=== PATIENT | female | born 1950 | race Caucasian/White ===

== ENCOUNTER 2022-12-30 13:55 | Outpatient (CLI) | payer OTHER, SELFPAY ==
--- NOTE | 2022-12-30 14:54 | XR_ITS ---
WS: [id number] DEXA (DUAL ENERGY X-RAY ABSORPTIOMETRY) Bone mineral density was performed using a [employer] machine. HISTORY: OSTEOPOROSIS COMPARISON: None available. Lumbar spine BMD (L1-L4): 0.999 g/cm2 T score: -1.5 Z score: 0.0 Total hip BMD: Left: 0.673 g/cm2. T score: -2.7 Z score: -1.1 Right: 0.700 g/cm2. T score: -2.4 Z score: -0.9 10 year probability of a major osteoporotic fracture is 19.5%. IMPRESSION: OSTEOPOROSIS based upon the WHO classification for females.
--- NOTE | 2022-12-30 14:58 | MM_ITS ---
WS: [id number] BILATERAL 3D TOMOSYNTHESIS DIGITAL SCREENING MAMMOGRAPHY WITH CAD CLINICAL INFORMATION: SCREENING HISTORY: Screening mammogram. No current complaints. COMPARISON: 2019 TECHNIQUE: Bilateral CC and MLO views. FINDINGS: Scattered fibroglandular densities bilaterally. No suspicious focal mass, asymmetry, calcifications, or architectural distortion. No evidence of malignancy. Vascular calcifications. Lucent centered calc ifications. IMPRESSION: MM/[place] [id number] BI-RADS: 2-Benign FOLLOW UP: 1 Year Follow-up Recommend return to annual screening mammography.
== END 2022-12-30 13:56 | disposition home or self-care (01) ==
LOC: RAD 13:55
PROVIDERS: PCP Family Medicine; Visit Provider Family Medicine
DX: Z12.31 Encounter for screening mammogram for malignant neoplasm of breast (principal); M81.0 Age-related osteoporosis without current pathological fracture
CPT/HCPCS: 77063; 77067; 77080

== ENCOUNTER → 2023-12-07 14:18 | Outpatient (BNVA) | payer OTHER, SELFPAY | PROVIDERS: PCP Family Medicine; Visit Provider Nurse Practitioner Women's Health | DX: L98.419 Non-pressure chronic ulcer of buttock with unspecified severity (principal) | CPT/HCPCS: 87070 ==

== ENCOUNTER 2023-12-25 11:45 | Outpatient (CLI) | payer OTHER, SELFPAY ==
[2023-12-25 12:39] LABS: Basophils # 0.1 10^3/uL (0.0-0.1); Basophils % 0.5 %; Eosinophils # 0.1 10^3/uL (0.0-0.8); Eosinophils % 0.6 %; Hematocrit 33.9 % (36-47); Lymphocytes # 4.1 10^3/uL (0.8-4.8); Lymphocytes % 40.6 %; Mean Corpuscular HGB Conc 32.7 g/dL (30-55); Mean Corpuscular Hemoglobin 32.8 pg (27-33); Mean Corpuscular Volume 100.3 fl (85-98); Mean Platelet Volume 9.7 fL (7.4-10.4); Monocytes # 0.9 10^3/uL (0.2-0.9); Monocytes % 9.4 %; Neutrophils # 4.87 10^3/uL (1.8-7.7); Neutrophils % 48.7 %; Nucleated Red Blood Cells % 0 %; Platelet Count 379 10^3/cmm (157-399); Red Blood Count 3.38 10^6/uL (3.85-5.65)
== END 2023-12-25 11:46 | disposition home or self-care (01) ==
LOC: LAB 11:45
PROVIDERS: PCP Family Medicine; Visit Provider Dermatology
DX: Z01.89 Encounter for other specified special examinations (principal)
CPT/HCPCS: 36415; 85025

== ENCOUNTER → 2024-02-05 12:49 | Outpatient (BNVA) | payer MEDICARE, SELFPAY | PROVIDERS: PCP Family Medicine; Visit Provider Dermatology | DX: L98.491 Non-pressure chronic ulcer of skin of other sites limited to breakdown of skin (principal) | CPT/HCPCS: 99214 ==

== ENCOUNTER 2024-09-12 11:24 | Outpatient (CLI) | payer MEDICARE, SELFPAY ==
--- NOTE | 2024-09-12 11:29 | MR_ITS ---
WS: [id number] MRI HEAD WITH CONTRAST WITH ATTENTION TO THE INTERNAL AUDITORY CANALS TECHNIQUE: Sagittal T1, T2 axial, T2 axial flair, axial susceptibility weighted imaging, axial diffusion weighted images, and coronal T2 images were obtained. Pre and post T1 axial and post T1 coronal images. ADC and FSPGR images. Post gadolinium images with attention to the internal auditory canals. Axial fiesta imaging. CLINICAL INFORMATION: MIXED CONDUCTIVE SENSORINEURAL HEARING LOSS,BILATERAL COMPARISON: None. FINDINGS: No evidence of restricted diffusion to suggest acute ischemia. Ventricular system and basilar cisterns are patent. Moderate small vessel changes with moderate parenchymal volume loss. Mild central canal stenosis at C3-4 with a small central protrusion. No hemosiderin on the susceptibility weighted images. No evidence of enhancing IAC or CP angle mass. Normal trigeminal nerve root entry zones. No abnormal gadolinium enhancement. No other suspicious findings. MR/MR iac's wo/w con* [id number] IMPRESSION: 1. No evidence of restricted diffusion to suggest acute ischemia. 2. Moderate small vessel changes with moderate parenchymal volume loss. 3. No hemosiderin on the susceptibly weighted images. 4. Proximal 7th and 8th cranial nerves are normal in appearance. No evidence o f enhancing IAC or CP angle mass. 5. Paranasal sinuses and mastoid air cells are well aerated.
[2024-09-12] MEDS: gadobenate dimeglumine 20 mL vial IV (12:42)
== END 2024-09-12 11:25 | disposition home or self-care (01) ==
LOC: RAD 11:26
PROVIDERS: PCP Family Medicine; Visit Provider Nurse Practitioner Family
DX: H90.6 Mixed conductive and sensorineural hearing loss, bilateral (principal); M48.02 Spinal stenosis, cervical region; M50.21 Other cervical disc displacement, high cervical region
CPT/HCPCS: 70553